=== PATIENT | male | born 1970 | race Caucasian/White ===

== ENCOUNTER 2020-08-15 06:04 | Outpatient (REF) | payer OTHER, SELFPAY ==
[2020-08-15 11:34] LABS: Estimated Average Glucose 309 mg/dL; Hemoglobin A1c % 12.4 %
[2020-08-15 11:55] LABS: Creatinine Urine 95.19 mg/dL; Microalbum/Creatinine Ratio Ur 32.5 ug/mg cr
[2020-08-15 12:11] LABS: TSH reflex Free T4 3.72 uIU/mL (0.32-4.0)
[2020-08-15 12:15] LABS: Alanine Aminotransferase 27 U/L (0-40); Albumin Level 4.2 g/dL (3.5-5.0); Alkaline Phosphatase 63 U/L (39-117); Anion Gap 17 (12-20); Aspartate Amino Transferase 17 U/L (5-37); Bilirubin Total 0.5 mg/dL (0.0-1.0); Blood Urea Nitrogen 30 mg/dL (9-16); Calcium 9.4 mg/dL (8.4-10.2); Carbon Dioxide 25 mmol/L (22-29); Chloride 101 mmol/L (96-108); Cholesterol 176 mg/dL; Estimated Glomerular Filt Rate 56; Glucose Fasting 335 mg/dL (60-99); HDL Cholesterol 40 mg/dL; Potassium 4.4 mmol/L (3.3-5.1); Sodium 139 mmol/L (135-145); Total Protein 6.9 g/dL (6.5-8.0); Triglycerides 441 mg/dL
== END 2020-08-15 06:05 | disposition home or self-care (01) ==
LOC: HO.HMGCLDS 06:04
PROVIDERS: PCP Nurse Practitioner Family; Visit Provider Nurse Practitioner Family
DX: E11.9 Type 2 diabetes mellitus without complications (principal); E03.9 Hypothyroidism, unspecified
CPT/HCPCS: 36415; 80053; 80061; 82043; 83036; 84443

== ENCOUNTER 2021-07-18 05:59 | Outpatient (REF) | payer OTHER, SELFPAY ==
[2021-07-18 11:35] LABS: Appearance Urine CLOUDY; Color Urine YELLOW; Glucose Urine UA >=1000 MG/DL (NEG); Leukocyte Esterase Urine NEG (NEG); Nitrite Urine NEG (NEG); PH 5.5 (5.0-8.0); Specific Gravity - Urine >= 1.030 (1.005-1.025); Urine Blood NEG (NEG); Urine Ketones NEG (NEG); Urine Protein NEG (NEG-TRACE)
[2021-07-18 11:37] LABS: Alanine Aminotransferase 23 U/L (0-40); Albumin Level 4.1 g/dL (3.5-5.0); Alkaline Phosphatase 71 U/L (39-117); Anion Gap 17 (12-20); Aspartate Amino Transferase 15 U/L (5-37); Bilirubin Total 0.6 mg/dL (0.0-1.0); Blood Urea Nitrogen 21 mg/dL (9-16); Calcium 9.2 mg/dL (8.4-10.2); Carbon Dioxide 23 mmol/L (22-29); Chloride 102 mmol/L (96-108); Cholesterol 207 mg/dL; Estimated Glomerular Filt Rate 55; Glucose Fasting 328 mg/dL (60-99); HDL Cholesterol 39 mg/dL; LDL Cholesterol Calculated 117 mg/dl; Potassium 3.9 mmol/L (3.3-5.1); Sodium 138 mmol/L (135-145); Total Protein 6.9 g/dL (6.5-8.0); Triglycerides 257 mg/dL
[2021-07-18 12:01] LABS: Prostate Specific Antigen Scr 0.44 ng/mL (<0.05-4.0)
[2021-07-18 12:11] LABS: Bacteria Urine 2+ /LPF; Creatinine Urine 151.59 mg/dL; Microalbum/Creatinine Ratio Ur 32.3 ug/mg cr; RBC Urine 0-2 /HPF (0); Squamous Epithelial Cell Urine TRACE /LPF
[2021-07-18 12:11] LABS: Estimated Average Glucose 341 mg/dL; Hemoglobin A1c % 13.5 %
[2021-07-18 12:12] LABS: Mucus Urine 1+ /LPF
[2021-07-18 12:45] LABS: Free T4 (Free Thyroxine) 0.84 ng/dL (0.71-1.85)
== END 2021-07-18 06:00 | disposition home or self-care (01) ==
LOC: HO.HMGCLDS 05:59
PROVIDERS: Visit Provider Nurse Practitioner Family
DX: Z12.5 Encounter for screening for malignant neoplasm of prostate (principal); E11.9 Type 2 diabetes mellitus without complications
CPT/HCPCS: 36415; 80053; 80061; 81001; 82043; 83036; 84153; 84439; 84443

== ENCOUNTER → 2022-07-16 07:19 | Outpatient (BNVA) | payer OTHER, SELFPAY | PROVIDERS: PCP Nurse Practitioner Family; Visit Provider Physician Assistant | DX: Z12.11 Encounter for screening for malignant neoplasm of colon (principal) | CPT/HCPCS: 99202 ==

== ENCOUNTER 2022-12-17 14:47 | Outpatient (AMB) | payer OTHER, SELFPAY ==
--- NOTE | 2022-12-17 15:06 | A.OFFPC_ITS ---
Vital Signs 12/17/22 15:07 Height 5 ft 6 in Weight 262 lb 2 oz BMI 42.3 BP 108/70 Blood Pressure Location Rt brachial Position Sitting Pulse 69 Pulse Source Pulse Oximeter Pulse Oximetry (%) 98 Oxygen Delivery Method Room Air Intake Visit Reasons: over due follow up DM and TSH Allergies No Known Allergies [No Known Allergies*] Allergy (Verified 12/17/22 15:11) Medication List - Last Reconciled 12/17/22 by HODAN Zepeda bisacodyl (Dulcolax (bisacodyl)) 10 mg (2 x 5 mg) PO ONCE 1 day fenofibrate micronized 134 mg PO DAILY 90 days irbesartan 75 mg PO DAILY 90 days levothyroxine 50 mcg PO DAILY metformin 1,000 mg PO BID 90 days omega-3 acid ethyl esters 2 caps PO BID pioglitazone (Actos) 30 mg PO DAILY polyethylene glycol 3350 (Miralax) 238 grams PO ONCE 1 day semaglutide (Ozempic) 0.25 mg (0.368 mL) subcut QWEEK simvastatin 40 mg PO DAILY 90 days Tobacco use date assessed: 12/17/22 Dental Screening Dental Screen Date: 12/17/22 Did you have a dental visit in the last 12 months?: No Did you have a dental problem in the last 6 months where you did not have access to dental care?: No Was dental information given to patient?: No HPI over due follow up DM and TSH HPI Details Pt is a diabetic, on an ARB and a statin. A1c in office today is 10.2. Due for microalbumin and labs, these have been ordered previously. Denies polyuria, polydipsia, and neuropathy. Pt denies any signs and symptoms of hypoglycemia and does know how to correct it. Pt does not check his blood sugar at all, refuses a sensor. Pt will start checking his blood sugar at home more, according to pt. Will start ozempic 0.25mg. Pt is going for a colonoscopy tomorrow. [facility] Medical History Diabetes Elevated cholesterol Hypothyroid Surgical History History of incision and drainage Hx of laparoscopic gastric banding Family History Father Heart attack Mother Cancer Social History Housing: House Patient Tobacco Use Status: Never used Tobacco e-Cigarette/Vaping Use: Never Used Second Hand Smoke Exposure: No service: No Current occupational status: employed Current occupation: [employer] Current occupational exposures/hazards: Yes Cognitive needs: No Hearing needs: No Vision needs: No Questionnaire Thrive Questionnaire Date Thrive assessed: 07/17/21 ADALI-7 AMB Questionnaire ADALI-7 Date ADALI - 7 assessed: 07/17/21 Source: Developed by Drs. Jonah Angeles, Lorene Chavez, Dougie Ortega and colleagues, with an educational lian from [employer]. Review of Systems Const Reports as per HPI Physical exam (Primary Care) Vital Signs: Last Vital Signs Pulse 69 12/17/22 15:07 BP 108/70 12/17/22 15:07 Pulse Ox 98 12/17/22 15:07 Oxygen Delivery Method Room Air 12/17/22 15:07 BMI result Body Mass Index 42.3 Tobacco/Smoking Status: Tobacco use Status Tobacco use date assessed 12/17/22 12/17/22 15:17 Patient Tobacco Use Status Never used Tobacco 12/17/22 15:11 e-Cigarette/Vaping Use Never Used 12/17/22 15:11 Thrive Assessment: Date of Thrive Assessment Date Thrive assessed 07/17/21 12/17/22 15:11 Const General: cooperative Nutritional Appearance: obese morbidly obese Orientation/consciousness: patient oriented x3 Resp Effort & Inspection: normal respiratory effort Auscultation: clear to auscultation bilaterally Cardio Rate: regular rate Rhythm: regular rhythm Heart sounds: S1 normal heart sound present and S2 normal heart sound present Neuro General: patient oriented x3 Extrem Other: bilat feet: + sensation with use of monofilament, onychomycosis noted bilat, right big toenail mostly absent Psych Appearance: grossly normal Mental Status: mental status grossly normal Speech and movement: Normal speech and movement present Affect: normal affect Attitude: cooperative Thought process: Normal thought process present Thought content: Normal thought content present Insight: Good insight present (Psych) Judgement: Good judgement present (Psych) Results AMB Hemoglobin A1c AMB Hemoglobin A1c 10.2 % Last Edit by Cindy Abdalla CMA on 12/17/22 15 :30 Results Reviewed Results Reviewed: Laboratory Last Values Hgb A1c (Clinic) 10.2 % (4.0-6.0) H 12/17/22 15:29 Assessment and Plan Assessment & Plan (1) Diabetes: Code(s): E11.9 - Type 2 diabetes mellitus without complications Plan The patient agreed to the use of a bilingual medical assistant for this encounter. Scribed for HODAN Fung by Montse Negrete bilingual medical assistant, on 12/17/2022 at 15:30 EST. Orders: Orders AMB Hemoglobin A1c Today E11.9 - Type 2 diabetes mellitus without complications Medications: New semaglutide (Ozempic) for 4 weeks 0.25 mg (0.368 mL) subcut QWEEK 3 mL 1RF Coding Level of Care Code Est Pt Level 3 (40590) Diagnoses Diabetes E11.9
[2022-12-17 15:07] VITALS: BP 108/70; PULSE 69; O2SAT 98; BMI 42.3
== END 2022-12-17 15:54 | disposition home or self-care (01) ==
PROVIDERS: Visit Provider Nurse Practitioner Family
DX: E11.9 Type 2 diabetes mellitus without complications (principal)
CPT/HCPCS: 83036; 99213

== ENCOUNTER 2022-12-18 09:52 | Day surgery (SDC) | payer OTHER, SELFPAY ==
[2022-12-16 13:38] VITALS: BMI 40.8
--- NOTE | 2022-12-17 10:35 | P.CONAN_ITS ---
Documented by User: Marlena Rosenberg NP 12/17/22 10:35 HPI - Anesthesia Eval Consult details Narrative: 52yo M for Colonoscopy [facility] Active Problems Active Problems: All Active Problems (Updated 12/16/22 @ 13:35 by Kimberly Encarnacion RN) Hypothyroid (Acute) Dyslipidemia (Acute) Diabetes (Acute) Screening PSA (prostate specific antigen) (Acute) Uncontrolled diabetes mellitus with hyperglycemia (Acute) Screening for colon cancer (Acute) Past Medical History Medical History Diabetes Elevated cholesterol HTN (hypertension) Hypothyroid Family History Family History Father Heart attack Mother Cancer Surgical History Surgical History History of incision and drainage Hx of laparoscopic gastric banding Social History Social History Housing: House Patient Tobacco Use Status: Never used Tobacco e-Cigarette/Vaping Use: Never Used Second Hand Smoke Exposure: No Use of substances other than those prescribed or required for medical reasons: No Are you DNR?: No Advance Directives: No Advance Directives Information Provided: Yes service: No Current occupational status: employed Current occupation: [employer] Current occupational exposures/hazards: Yes Cognitive needs: No Hearing needs: No Vision needs: No Meds Allergies Allergy/AdvReac Type Severity Reaction Status Date / Time No Known Allergies Allergy Verified 12/18/22 10:23 [No Known Allergies*] Exam Exam Date and Time: December 17, 2022 1035 Height,Weight and Vital Signs: Height 5 ft 6 in Weight 114.759 kg Assessment and Plan Assessment Anesthesia Assessment: Chart Reviewed Documented by User: Selina Gray MD 12/18/22 11:42 PMFSH Past Medical History Medical History Diabetes Elevated cholesterol HTN (hypertension) Hypothyroid Family History Family History Father Heart attack Mother Cancer Family history of problems with anesthesia: No Surgical History Surgical History History of incision and drainage Hx of laparoscopic gastric banding History of Problems with Anesthesia: No Social History Social History Housing: House Patient Tobacco Use Status: Never used Tobacco e-Cigarette/Vaping Use: Never Used Second Hand Smoke Exposure: No Use of substances other than those prescribed or required for medical reasons: No Are you DNR?: No Advance Directives: No Advance Directives Information Provided: Yes service: No Current occupational status: employed Current occupation: [employer] Current occupational exposures/hazards: Yes Cognitive needs: No Hearing needs: No Vision needs: No Meds Allergies Allergy/AdvReac Type Severity Reaction Status Date / Time No Known Allergies Allergy Verified 12/18/22 10:23 [No Known Allergies*] Exam Airway Mallampati Class: III TM Dist: >3cm Heart: rrr Lungs: cta Assessment and Plan Assessment Anesthesia Assessment: Anesthesia Plan Discussed Final Anesthetic Review Family History of Problems with Anesthesia: No History of Problems with Anesthesia: No NPO: Yes ASA Class: III Final Preanesthetic Review: No Changes in Pt Med Stat, Meds/Allgs Chart Reviewed, Consent Obtained/Reviewed and Anes Risks/Benef Reviewed Patient Risk: Intermediate Procedure Risk: Low Anesthetic Plan Anesthetic Plan: MAC: Disposition: Standard PACU
[2022-12-18 10:35] VITALS: BP 162/85; PULSE 74; RESP 16; TEMP 36.2; O2SAT 96
--- NOTE | 2022-12-18 10:40 | MHC.SHP ---
Pre-Procedural Eval Section A Date of Service: 12/18/22 Section B Chief Complaint: screening Relevant Family History (Specify if Yes): No Relevant Social History: None Present Medications: see Short Stay Collaborative assessment Medical History: Significant History (Diabetes Elevated cholesterol HTN (hypertension) Hypothyroid) History of Previous Operations: Relevant previous surgery/procedure and date(s) (History of incision and drainage Hx of laparoscopic gastric banding) Allergies: Allergies Allergy/AdvReac Type Severity Reaction Status Date / Time No Known Allergies Allergy Verified 12/18/22 10:23 [No Known Allergies*] Review of Systems Sugical H&P ROS: Negative: Constitution, Cardiovascular, Respiratory, Neurological, Psychiatric, Hem-Onc, Allergic/Immunologic, Gastrointestinal, Genitourinary, Musculoskeletal, Integumentary, Endocrine and Eyes/Ears/Nose/Throat Exam Surgical H&P Exam: Normal: HEENT, Normal: Heart, Normal: Lungs, Normal: Extremities, Normal: Abdomen, Normal: Skin and Normal: Neurological Plan Diagnosis/Plan: Unchanged I have reviewed the history and physical and performed a pertinent physical examination on my patient. No changes have occurred unless specified. Time Spent With Patient Time: Total time managing care of this patient today ____ minutes.
[2022-12-18] MEDS: Lactated Ringers 1,000 ML 100 ML IVCONT (10:50)
[2022-12-18 10:55] LABS: Glucose, Whole Blood 202 mg/dL (60-115)
--- NOTE | 2022-12-18 11:53 | W.PM.OPN ---
Operative Note Operative Note Date of Service: 12/18/22 Narrative: Operative Information Procedure Description: Colonoscopy Indication: screening Anesthesia: MAC COLONOSCOPY Instrument: Olympus variable stiffness ADULT scope 190L Colonoscopy Monitoring: Vital signs and clinical assessment, continuous EKG monitoring, Pulse oximetry, Carbon Dioxide monitoring and blood pressure monitoring were done throughout the procedure. Colon withdrawal time was 8 minutes. Procedure: The patient was placed in the left lateral decubitis position and pre-procedure medications were administered. After a digital rectal examination of the ano-rectum, the video colonoscope was inserted into the rectum and advanced through the colon to the cecum/TI. The colonoscope was slowly withdrawn in a retrograde panoramic fashion and the colon mucosa was carefully examined including a retroflexed view of the rectum. Findings and interventions are described below. Procedure Difficulty: [] Findings: Terminal Ileum-normal Cecum:normal Ascending Colon: normal Transverse Colon -normal Descending Colon:normal Sigmoid Colon: normal Rectum: Retroflexion with small internal hemorrhoids, grade I Anorectum - normal Colon preparation: [place] Bowel Preparation Scale Right colon; 2 Transverse colon: 3 Left colon; 2 (0 = Unprepared colon segment with mucosa not seen due to solid stool that cannot be cleared. 1 = Portion of mucosa of the colon segment seen, but other areas of the colon segment not well seen due to staining, residual stool and/or opaque liquid. 2 = Minor amount of residual staining, small fragments of stool and/or opaque liquid, but mucosa of colon segment seen well. 3 = Entire mucosa of colon segment seen well with no residual staining, small fragments of stool or opaque liquid) Impression and Post Procedure Diagnosis: internal hemorrhoids Plan: High fiber diet leaflet Avoid straining at stool, epsom salts and sitz bath, anusol supps or cream Repeat Colonoscopy in 10 years or earlier if clinically indicated Above findings were reviewed with the patient and relevant handouts were provided if indicated.
[2022-12-18 12:21] VITALS: BP 83/61; PULSE 82; RESP 16; TEMP 36.9; O2SAT 96
[2022-12-18 12:36] VITALS: BP 106/71; PULSE 75; RESP 18; TEMP 36.7; O2SAT 96
== END 2022-12-18 13:00 | disposition home or self-care (01) ==
PROVIDERS: PCP Nurse Practitioner Family; Visit Provider Internal Medicine Gastroenterology
PROC: 0DJD8ZZ Inspection of Lower Intestinal Tract, Via Natural or Artificial Opening Endoscopic (ICD-10-PCS; CPT 45378; principal; 2022-12-18 11:50)
DX: Z12.11 Encounter for screening for malignant neoplasm of colon (principal); K64.0 First degree hemorrhoids; E11.9 Type 2 diabetes mellitus without complications; I10 Essential (primary) hypertension; E78.5 Hyperlipidemia, unspecified; E03.9 Hypothyroidism, unspecified; Z98.84 Bariatric surgery status; Z79.84 Long term (current) use of oral hypoglycemic drugs; Z79.899 Other long term (current) drug therapy
CPT/HCPCS: 45378; 82947

== ENCOUNTER → 2022-12-18 09:52 | Outpatient (BNV) | payer OTHER, SELFPAY | PROVIDERS: PCP Nurse Practitioner Family; Visit Provider Internal Medicine Gastroenterology | DX: Z12.11 Encounter for screening for malignant neoplasm of colon (principal); K64.8 Other hemorrhoids | CPT/HCPCS: 45378 ==

== ENCOUNTER 2023-02-17 06:01 | Outpatient (REF) | payer OTHER, SELFPAY ==
[2023-02-17 11:33] LABS: MANUAL DIFF FLAG NO
[2023-02-17 11:49] LABS: Basophils Percent Auto 0.7 % (0-2); Eosinophils Absolute Auto 0.2 X10*3/uL (0.0-0.4); Eosinophils Percent Auto 3.9 % (0-4); Hematocrit 38.6 % (42.0-52.0); Hemoglobin 12.7 g/dl (14.0-18.0); Imm Gran Abs Auto 0.01 X10*3/uL (0.00-0.03); Imm Gran Pct Auto 0.2 % (0.0-0.4); Lymphocytes Absolute Auto 1.4 X10*3/uL (1.2-4.9); Lymphocytes Percent Auto 23.5 % (20-40); Mean Corpuscular HGB Conc 32.9 g/dl (31.0-36.0); Mean Corpuscular Hemoglobin 28.8 pg (27.0-33.0); Mean Corpuscular Volume 87.5 fL (80.0-98.0); Mean Platelet Volume 10.6 fL (9.4-12.4); Monocytes Absolute Auto 0.5 X10*3/uL (0.1-1.2); Monocytes Percent Auto 8.9 % (2-11); Neutrophils Absolute Auto 3.8 x10*3/uL (2.0-8.3); Neutrophils Percent Auto 62.8 % (45-73); Platelet Count 223 X10*3/uL (160-400); Red Blood Count 4.41 X10*6/uL (4.60-5.80); Red Cell Distribution Width 13.2 % (11.0-16.0); White Blood Count 6.1 X10*3/uL (4.8-10.8)
[2023-02-17 12:05] LABS: Appearance Urine Clear; Color Urine Yellow; Glucose Urine UA Negative (Negative); Leukocyte Esterase Urine Negative (Negative); Nitrite Urine Negative (Negative); PH 6.5 (5.0-9.0); Urine Blood Negative (Negative); Urine Ketones Negative (Negative); Urine Protein Negative (Neg-Trace)
[2023-02-17 12:17] LABS: Alanine Aminotransferase 18 U/L (0-40); Albumin Level 4.1 g/dL (3.5-5.0); Alkaline Phosphatase 32 U/L (39-117); Anion Gap 14 (12-20); Aspartate Amino Transferase 18 U/L (5-37); Bilirubin Total 0.6 mg/dL (0.0-1.0); Blood Urea Nitrogen 24 mg/dL (9-16); Calcium 9.5 mg/dL (8.4-10.2); Carbon Dioxide 24 mmol/L (22-29); Chloride 105 mmol/L (96-108); Cholesterol 142 mg/dL (<200); Estimated Glomerular Filt Rate 52; Glucose Fasting 110 mg/dL (60-99); HDL Cholesterol 48 mg/dL (>40); LDL Cholesterol Calculated 73 mg/dL (<100); Potassium 4.4 mmol/L (3.3-5.1); Sodium 139 mmol/L (135-145); Total Protein 7.1 g/dL (6.5-8.0); Triglycerides 106 mg/dL (<150)
[2023-02-17 12:37] LABS: TSH reflex Free T4 3.69 uIU/mL (0.32-4.0)
[2023-02-17 12:39] LABS: Prostate Specific Antigen Scr 0.56 ng/mL (<0.05-4.0)
[2023-02-17 12:49] LABS: Creatinine Urine 164.91 mg/dL; Microalbum/Creatinine Ratio Ur 3.6 ug/mg cr (<30)
== END 2023-02-17 06:02 | disposition home or self-care (01) ==
LOC: HO.HMGCLDS 06:01
PROVIDERS: PCP Nurse Practitioner Family; Visit Provider Nurse Practitioner Family
DX: E11.65 Type 2 diabetes mellitus with hyperglycemia (principal); Z12.5 Encounter for screening for malignant neoplasm of prostate
CPT/HCPCS: 36415; 80053; 80061; 81003; 82043; 82570; 84153; 84443; 85025

== ENCOUNTER 2023-02-24 12:39 | Outpatient (REF) | payer OTHER, SELFPAY ==
[2023-02-24 16:38] LABS: Blood Urea Nitrogen 21 mg/dL (9-16); Estimated Glomerular Filt Rate 58
== END 2023-02-24 12:40 | disposition home or self-care (01) ==
LOC: HO.HMGCLDS 12:39
PROVIDERS: PCP Nurse Practitioner Family; Visit Provider Nurse Practitioner Family
DX: R79.89 Other specified abnormal findings of blood chemistry (principal)
CPT/HCPCS: 36415; 82565; 84520

== ENCOUNTER 2023-05-18 14:03 | Outpatient (AMB) | payer OTHER, SELFPAY ==
--- NOTE | 2023-05-18 14:17 | MHC.PC.OV ---
Vital Signs 05/18/23 14:19 Height 5 ft 6 in Weight 252 lb BMI 40.7 BP 108/68 Blood Pressure Location Lt brachial Position Sitting Pulse 78 Pulse Source Pulse Oximeter Pulse Oximetry (%) 98 Oxygen Delivery Method Room Air Intake Visit Reasons: Diabetes follow up Intake Note: Patient here for diabetes F/U. Pt has not been checking sugars at home. Allergies No Known Allergies [No Known Allergies*] Allergy (Verified 05/18/23 14:20) Tobacco use date assessed: 05/18/23 Dental Screening Dental Screen Date: 05/18/23 Did you have a dental visit in the last 12 months?: No Did you have a dental problem in the last 6 months where you did not have access to dental care?: No Was dental information given to patient?: Patient has dentist HPI Diabetes follow up HPI Details Pt is a diabetic, on an ARB and a statin. A1C in office today is 7.1. Microalbumin is up to date. Denies polyuria, polydipsia, and neuropathy. Pt denies any signs and symptoms of hypoglycemia and does know how to correct it. Pt does not check his blood sugar. Refuses sensor. Will increase trulicity from 0.75mg to 1.5mg. Pt is working on his diet. Pt reports that he was told he has sleep apnea (after having a colon screen), he refuses to see sleep medicine. Refuses all vaccinations. [facility] Medical History HTN (hypertension) Hypothyroid Diabetes Elevated cholesterol Surgical History History of incision and drainage Hx of laparoscopic gastric banding Family History Father Heart attack Mother Cancer Social History Housing: House Patient Tobacco Use Status: Never used Tobacco e-Cigarette/Vaping Use: Never Used Second Hand Smoke Exposure: No service: No Current occupational status: employed Current occupation: [employer] Current occupational exposures/hazards: Yes Cognitive needs: No Hearing needs: No Vision needs: No Questionnaire PHQ-9 Over the last 2 weeks, how often have you been bothered by any of the following problems? 69302 - PHQ-9 Billing: Patient declined-do not bill Source: Developed by Drs. Jonah Angeles, Dougie Reyna and colleagues, with an educational lian from [employer]. Thrive Questionnaire Date Thrive assessed: 05/18/23 What is your living situation today?: I choose not to answer this question Within the past 12 months, did the food you bought not last and you didn't have the money to get more?: I choose not to answer this question Within the past 12 months, did you worry whether your food would run out before you got money to buy more?: I choose not to answer this question Do you have trouble paying for medicines?: I choose not to answer this question Do you have trouble getting transportation to medical appointments?: I choose not to answer this question Do you have trouble paying your heating and electricity bill?: I choose not to answer this question Do you have trouble taking care of your child, family member or friend?: I choose not to answer this question Do you have trouble with day-to-day activities such as bathing, preparing meals, shopping, managing finances, etc.?: I choose not to answer this question Are you currently unemployed and looking for a job?: I choose not to answer this question Are you interested in more education?: I choose not to answer this question AUDIT C Alcohol Use Questionnaire (AUDIT-C) 1. How often do you have a drink containing alcohol?: Monthly or less 2. How many drinks containing alcohol do you have on a typical day when you are drinking?: 1 or 2 3. How often do you have six or more drinks on one occasion?: Never Total Score: 1 Score Reviewed/Action Taken: No ADALI-7 AMB Questionnaire ADALI-7 Date ADALI - 7 assessed: 05/18/23 Source: Developed by Drs. Jonah Angeles, Dougie Reyna and colleagues, with an educational lian from [employer]. ADALI-7 Assessment Billing ADALI-7 Assessment Tool: pt declined-do not bill Review of Systems Const Reports as per HPI Physical exam (Primary Care) Vital Signs: Last Vital Signs Pulse 78 05/18/23 14:19 BP 108/68 05/18/23 14:19 Pulse Ox 98 05/18/23 14:19 Oxygen Delivery Method Room Air 05/18/23 14:19 BMI result Body Mass Index 40.7 Tobacco/Smoking Status: Tobacco use Status Tobacco use date assessed 05/18/23 05/18/23 14:24 Patient Tobacco Use Status Never used Tobacco 05/18/23 14:19 e-Cigarette/Vaping Use Never Used 05/18/23 14:19 Thrive Assessment: Date of Thrive Assessment Date Thrive assessed 05/18/23 05/18/23 14:31 Const General: cooperative Nutritional Appearance: obese morbidly obese Orientation/consciousness: patient oriented x3 Resp Effort & Inspection: normal respiratory effort Auscultation: clear to auscultation bilaterally Cardio Rate: regular rate Rhythm: regular rhythm Heart sounds: S1 normal heart sound present, S2 normal heart sound present and no murmurs Neuro General: patient oriented x3 Extrem Other: bilat feet: + sensation with use of monofilament Psych Appearance: grossly normal Mental Status: mental status grossly normal Speech and movement: Normal speech and movement present Affect: normal affect Attitude: cooperative Thought process: Normal thought process present Thought content: Normal thought content present Insight: Good insight present (Psych) Judgement: Good judgement present (Psych) Results AMB Hemoglobin A1c AMB Hemoglobin A1c 7.1 % Last Edit by DAISHA Williamson on 05/18/23 14:50 Results Reviewed Results Reviewed: Laboratory Last Values Hgb A1c (Clinic) 7.1 % (4.0-6.0) H 05/18/23 14:30 Assessment and Plan Assessment & Plan (1) Diabetes: Code(s): E11.9 - Type 2 diabetes mellitus without complications Plan increased trulicity from .75mg to 1.5mg weekly. Orders: Orders Comprehensive [place]. Panel Fast Today E11.9 - Type 2 diabetes mellitus without complications TSH reflex Free T4 Today E11.9 - Type 2 diabetes mellitus without complications UA CC w/rflx Micro + Cult Today E11.9 - Type 2 diabetes mellitus without complications AMB Hemoglobin A1c Today E11.9 - Type 2 diabetes mellitus without complications Complete Blood Count Auto Diff Today E11.9 - Type 2 diabetes mellitus without complications Medications: Changed From dulaglutide (Trulicity) 0.75 mg (0.5 mL) subcut QWEEK 2 mL 1RF To dulaglutide 1.5 mg (0.5 mL) subcut QWEEK 2 mL 1RF Coding Level of Care Code Est Pt Level 3 (77710) Diagnoses Diabetes E11.9
[2023-05-18 14:19] VITALS: BP 108/68; PULSE 78; O2SAT 98; BMI 40.7
== END 2023-05-18 15:16 | disposition home or self-care (01) ==
PROVIDERS: PCP Nurse Practitioner Family; Visit Provider Nurse Practitioner Family
DX: E11.9 Type 2 diabetes mellitus without complications (principal)
CPT/HCPCS: 83036; 99213

== ENCOUNTER 2023-09-03 09:22 | Outpatient (REF) | payer OTHER, SELFPAY ==
[2023-09-03 10:17] LABS: MANUAL DIFF FLAG NO
[2023-09-03 10:33] LABS: Basophils Absolute Auto 0.1 X10*3/uL (0.0-0.2); Basophils Percent Auto 0.9 % (0-2); Eosinophils Absolute Auto 0.2 X10*3/uL (0.0-0.4); Eosinophils Percent Auto 2.4 % (0-4); Hematocrit 39.6 % (42.0-52.0); Hemoglobin 12.9 g/dl (14.0-18.0); Imm Gran Abs Auto 0.03 X10*3/uL (0.00-0.03); Imm Gran Pct Auto 0.4 % (0.0-0.4); Lymphocytes Absolute Auto 1.5 X10*3/uL (1.2-4.9); Lymphocytes Percent Auto 20.3 % (20-40); Mean Corpuscular HGB Conc 32.6 g/dl (31.0-36.0); Mean Platelet Volume 10.4 fL (9.4-12.4); Monocytes Absolute Auto 0.6 X10*3/uL (0.1-1.2); Neutrophils Absolute Auto 5.1 x10*3/uL (2.0-8.3); Platelet Count 226 X10*3/uL (160-400); Red Blood Count 4.45 X10*6/uL (4.60-5.80); Red Cell Distribution Width 13.2 % (11.0-16.0); White Blood Count 7.5 X10*3/uL (4.8-10.8)
[2023-09-03 11:24] LABS: Alanine Aminotransferase 20 U/L (0-40); Albumin Level 4.4 g/dL (3.5-5.0); Alkaline Phosphatase 30 U/L (39-117); Anion Gap 15 (12-20); Aspartate Amino Transferase 21 U/L (5-37); Bilirubin Total 0.5 mg/dL (0.0-1.0); Blood Urea Nitrogen 26 mg/dL (9-16); Calcium 9.9 mg/dL (8.4-10.2); Carbon Dioxide 23 mmol/L (22-29); Chloride 102 mmol/L (96-108); Estimated Glomerular Filt Rate 54; Glucose Fasting 107 mg/dL (60-99); Potassium 4.1 mmol/L (3.3-5.1); Sodium 136 mmol/L (135-145); Total Protein 7.4 g/dL (6.5-8.0)
[2023-09-03 11:32] LABS: Appearance Urine Clear; Color Urine Yellow; Glucose Urine UA Negative (Negative); Leukocyte Esterase Urine Negative (Negative); Nitrite Urine Negative (Negative); PH 5.5 (5.0-9.0); Urine Blood Negative (Negative); Urine Ketones Negative (Negative); Urine Protein Negative (Neg-Trace)
[2023-09-03 11:41] LABS: TSH reflex Free T4 2.72 uIU/mL (0.32-4.0)
== END 2023-09-03 09:23 | disposition home or self-care (01) ==
LOC: HO.HMGCLDS 09:22
PROVIDERS: PCP Nurse Practitioner Family; Visit Provider Nurse Practitioner Family
DX: E11.9 Type 2 diabetes mellitus without complications (principal)
CPT/HCPCS: 36415; 80053; 81003; 84443; 85025

== ENCOUNTER 2023-09-03 09:36 | Outpatient (AMB) | payer OTHER, SELFPAY ==
--- NOTE | 2023-09-03 09:38 | A.OFFPC_ITS ---
Vital Signs 09/03/23 09:48 Height 5 ft 6 in Weight 255 lb BMI 41.2 BP 120/80 Blood Pressure Location Lt brachial Position Sitting Pulse 78 Pulse Source Pulse Oximeter Pulse Oximetry (%) 98 Oxygen Delivery Method Room Air Intake Visit Reasons: Diabetes follow up Intake Note: Patient here fro diabetes follow up. Allergies No Known Allergies [No Known Allergies*] Allergy (Verified 09/03/23 09:48) Medication List - Last Reconciled 09/03/23 by HODAN Zepeda dulaglutide 3 mg (0.5 mL) subcut QWEEK fenofibrate micronized 134 mg PO DAILY 90 days irbesartan 75 mg PO DAILY 90 days levothyroxine 50 mcg PO DAILY metformin 1,000 mg PO BID 90 days omega-3 acid ethyl esters 2 caps PO BID pioglitazone (Actos) 30 mg PO DAILY simvastatin 40 mg PO DAILY 90 days Tobacco use date assessed: 05/18/23 Dental Screening Dental Screen Date: 05/18/23 HPI Diabetes follow up HPI Details Pt is a diabetic, on an ARB and a statin. A1C in office today is 6.9, though slight anemia noted, fit card given to pt, pt does not want to get any further blood drawn, will speak with him next visit. will increase his trulicity from 3mg to 4.5mg. Microalbumin is up to date. Denies polyuria, polydipsia, and neuropathy. Pt denies any signs and symptoms of hypoglycemia and does know how to correct it. Will increase trulicity from 3mg to 4.5mg. Pt c/o intermittent chest pain. He had a difficult time describing the pain but reports that it is sharp. EKG in office shows NSR. Will also order stress test and echo. [facility] Medical History HTN (hypertension) Hypothyroid Diabetes Elevated cholesterol Surgical History History of incision and drainage Hx of laparoscopic gastric banding Family History Father Heart attack Mother Cancer Social History Housing: House Patient Tobacco Use Status: Never used Tobacco e-Cigarette/Vaping Use: Never Used Second Hand Smoke Exposure: No service: No Current occupational status: employed Current occupation: [employer] Current occupational exposures/hazards: Yes Cognitive needs: No Hearing needs: No Vision needs: No Questionnaire Thrive Questionnaire Date Thrive assessed: 05/18/23 ADALI-7 AMB Questionnaire ADALI-7 Date ADALI - 7 assessed: 05/18/23 Source: Developed by Drs. Jonah Angeles, Lorene Chavez, Dougie Ortega and colleagues, with an educational lian from [employer]. Review of Systems Const Reports as per HPI Physical exam (Primary Care) Vital Signs: Last Vital Signs Pulse 78 09/03/23 09:48 BP 120/80 09/03/23 09:48 Pulse Ox 98 09/03/23 09:48 Oxygen Delivery Method Room Air 09/03/23 09:48 BMI result Body Mass Index 41.2 Tobacco/Smoking Status: Tobacco use Status Tobacco use date assessed 05/18/23 09/03/23 09:38 Patient Tobacco Use Status Never used Tobacco 09/03/23 09:38 e-Cigarette/Vaping Use Never Used 09/03/23 09:38 Thrive Assessment: Date of Thrive Assessment Date Thrive assessed 05/18/23 09/03/23 09:38 Const General: cooperative Nutritional Appearance: obese morbidly obese Orientation/consciousness: patient oriented x3 Resp Effort & Inspection: normal respiratory effort Auscultation: clear to auscultation bilaterally Cardio Rate: regular rate Rhythm: regular rhythm Heart sounds: S1 normal heart sound present and S2 normal heart sound present GI Other: diastasis rectus noted Neuro General: patient oriented x3 Extrem Other: bilat feet: + sensation with use of monofilament, feet intact, faint onychomycosis noted Psych Appearance: grossly normal Mental Status: mental status grossly normal Speech and movement: Normal speech and movement present Affect: normal affect Attitude: cooperative Thought process: Normal thought process present Thought content: Normal thought content present Insight: Good insight present (Psych) Judgement: Good judgement present (Psych) Results AMB Hemoglobin A1c AMB Hemoglobin A1c 6.9 % Last Edit by DAIHSA Williamson on 09/03/23 10 :15 Immunizations pneumoc 20-charley conj-dip cr(PF) 0.5 mL IM syringe Performing Provider: HODAN Zepeda Performing Location: [facility] Administered by: DAISHA Williamson on 09/03/23 10:42 Dose Route Admin Location Dispensed Lot Number Expiration Date NDC Title Examiner 0.5 mL IM Left Deltoid 0.5 mL [id number] 07/02/24 [id number] WYETH/PFIZER VIS Given Date VIS Provided VIS Publication Date 09/03/23 Single Vaccine 21 Eligibility Eligibility Date Funding Source Not VFC Eligible 09/03/23 Private Results Reviewed Results Reviewed: Laboratory Last Values Hgb A1c (Clinic) 6.9 % (4.0-6.0) H 09/03/23 10:14 Assessment and Plan Assessment & Plan (1) Chest pain: Code(s): R07.9 - Chest pain, unspecified Plan: EKG done in office, stress test ordered, echo ordered (2) Anemia: Code(s): D64.9 - Anemia, unspecified Plan: FIT test sent with pt, pt refused any further current blood work. Plan The patient agreed to the use of a diagnostic medical sonographer for this encounter. Scribed for HOADN Fung by Montse Negrete diagnostic medical sonographer, on 09/03/2023 at 10:05 EST. Orders: Orders 2 CA echo transthoracic complete Today R07.9 - Chest pain, unspecified CA stress test Today R07.9 - Chest pain, unspecified AMB Hemoglobin A1c Today E11.9 - Type 2 diabetes mellitus without complications AMB EKG-In Office Today R07.9 - Chest pain, unspecified CA lexiscan stress w tomy Today R07.9 - Chest pain, unspecified Pneumococcal 20 Immunization Today Z23 - Encounter for immunization FITS Today D64.9 - Anemia, unspecified Medications: Changed From dulaglutide 3 mg (0.5 mL) subcut QWEEK 2 mL 1RF To dulaglutide 4.5 mg (0.75 mL) subcut QWEEK 2 mL 1RF Coding Level of Care Code Est Pt Level 3 (98428) Diagnoses Chest pain R07.9 Anemia D64.9
[2023-09-03 09:48] VITALS: BP 120/80; PULSE 78; O2SAT 98; BMI 41.2
== END 2023-09-03 10:48 | disposition home or self-care (01) ==
PROVIDERS: PCP Nurse Practitioner Family; Visit Provider Nurse Practitioner Family
DX: E11.9 Type 2 diabetes mellitus without complications (principal); R07.9 Chest pain, unspecified; D64.9 Anemia, unspecified; Z23 Encounter for immunization
CPT/HCPCS: 83036; 90471; 90677; 93000; 99213

== ENCOUNTER → 2023-09-15 08:44 | Outpatient (REF) | payer OTHER, SELFPAY ==
--- NOTE | 2023-09-15 08:46 | CA_ITS ---
Transthoracic Echocardiogram Patient (Last, First, Middle): Julien Wilkins J Gender: Male Date of : 1970 Age: 53 Procedure Date: 09/15/2023 Procedure Type: Transthoracic Echocardiogram Location: OP Height: 167.64 cm Weight: 113.4 kg BSA: 2.20 m2 Heart Rate: bpm BP: 130 / 82 mmHg Charge Entry: Referring MD: Vito Pruett [facility] Seal Mixing Operator: Eugene Interiano MD Symptoms: R07.9 - Chest pain, unspecified Study Quality: Adequate w contrast ECG Rhythm: Sinus Conclusions: - 1. Normal LV ejection fraction 55-60% 2. Mild fibrocalcific changes noted aortic valve with normal cardiac valvular Doppler 3. No gross pericardial effusion Findings Procedure Information Contrast agent, definity, is being given per protocol without apparent complications. Left Ventricle Normal left ventricular size, thickness, and systolic function. The visually estimated ejection fraction is between 55-60%. Spectral Doppler is indicative of a normal filling pattern. Right Ventricle Normal right ventricular cavity size. Atria The left atrium is likely dilated. Interatrial shunt cannot be excluded. The right atrium is normal in size. Aortic Valve There are fibrocalcifications on the aortic valve leaflets. There is mild thickening of the aortic valve. There is no aortic valve stenosis. There is no aortic valve regurgitation. Mitral Valve Likely normal mitral valve structure and function. There is trace mitral valve regurgitation. There is no mitral valve stenosis. Pulmonic Valve The pulmonic valve was not well visualized. Tricuspid Valve Likely normal tricuspid valve structure and function. Tricuspid regurgitation envelope is inadequate for calculation of right ventricular systolic pressure. Normal right atrial pressure. Great Vessels The pulmonary artery was not well visualized. There is no dilatation of the ascending aorta measuring 3.30 cm. Venous The inferior vena cava is normal in size and collapses greater than 50% with inspiration. Pericardium/Pleural There is no evidence of pericardial effusion. Prior Study Comparison No prior study available for comparison. Measurements 2D Linear Measurements IVSd: 1.08 0.6-0.9/0.6-1.0 cm LVIDd: 4.03 3.9-5.3/4.2-5.9 cm LVIDd Index: 1.83 2.4-3.2/2.2-3.1 cm/m2 LVIDs: 2.65 2.0-3.6 cm LVPWd: 1.05 0.7-1.1 cm Ao Root: 3.10 2.1-3.5 cm LA Diam: 3.80 2.7-3.8/3.0-4.0 cm LAIDs Index: 1.73 1.5-2.3 cm/m2 LV Mass: 175.03 67-162/88-224 g LV Mass Index: 79.56 43-95/49-115 g/m2 LVOT Diam: 2.50 3.0+(-)1.3 cm Mitral Valve MV Pk E: 0.57 MV PK A: 0.60 MV Decel Time: 170.00 E/A: 1.00 E'Lateral: 7.94 E'Medial: 6.20 E/E' Med: 9.20 E/E' Lat: 7.20 PHT: 50.00 MVA PHT: 4.40 Decel [place]: 3.34 Aortic Valve AoV Pk Denys: 1.20 AoV Mn Denys: 0.82 AoV VTI: 0.27 AoV Pk Grad: 6.00 Aov Mn Grad: 3.00 VINCE Cont.VTI: 3.55 LVOT LVOT Pk Denys: 0.91 LVOT Mn Denys: 0.59 LVOT VTI: 0.20 LVOT Pk Grad: 3.00 LVOT Mn Grad: 2.00 LVOT Diam: 2.50 LVOT Area: 4.91 Diastolic Function MV Pk E: 0.57 MV Pk A: 0.60 E/A: 1.00 E'Medial: 6.20 E/E' Med: 9.20 E' Laterial: 7.94 E/E' Lat: 7.20 Right Ventricle TAPSE (mm): 23.60 TVS' Denys: 11.70 Tricuspid Valve TR Pk Denys: 1.59 TR Pk Grad: 10.00 Great Vessels Aorta Ao Root-2D: 3.10 2.0-3.7 cm Ao Asc: 3.30 2.1-3.4 cm Pulmonary Valve PV Pk Denys: 0.98 Peak PV Grad: 4.00 Updated in Other Vendor System with Status of Final Eugene Interiano MD electronically signed on 09/15/2023 12:36:25 PM with status of Final
== END ==
LOC: HO.CARD 08:44
PROVIDERS: PCP Nurse Practitioner Family; Visit Provider Nurse Practitioner Family
DX: R07.9 Chest pain, unspecified (principal)
CPT/HCPCS: 93306; Q9957

== ENCOUNTER → 2023-09-15 08:46 | Outpatient (BNV) | payer OTHER, SELFPAY | PROVIDERS: PCP Nurse Practitioner Family; Visit Provider Internal Medicine Cardiovascular Disease | DX: I35.8 Other nonrheumatic aortic valve disorders (principal) | CPT/HCPCS: 93306 ==

== ENCOUNTER → 2023-10-15 07:38 | Outpatient (REF) | payer OTHER, SELFPAY ==
--- NOTE | ~2023-10-15 | NM_ITS ---
EXERCISE MYOCARDIAL PERFUSION STUDY INDICATION: Chest pain, assess for coronary disease and ischemia TECHNIQUE: The patient was brought in for an exercise perfusion study on 10/15/2023. Patient performed exercise as per Giorgio protocol and was injected 40 mCi of sestamibi once target heart rate was achieved. Images were obtained using the SPECT gamma camera interlaced with the gating device. Images were obtained in supine position. Resting perfusion study was performed on 10/16/2023. Patient was administered 40 mCi of sestamibi intravenously at rest. Images were then obtained in supine position. Images were processed with the software and compared side to side in short axis, horizontal long axis and vertical long axis views. Total DLP 203mGy-cm. FINDINGS: Raw images were reviewed. Raw acquisition reviewed. The stress perfusion study showed no significant perfusion abnormality. Both uncorrected as well as CT attenuation corrected images were reviewed. The gated study shows normal LV systolic function with calculated LVEF of 60%. LV cavity is normal in size. The gated study shows normal wall thickening and contraction of segments. Resting study shows no significant perfusion abnormality. Gating at rest reveals normal wall motion with LVEF 61%. The findings are consistent with no clear evidence of any ischemia or infarction. NM/NM cardiolite stress test IMPRESSION: 1. Myocardial perfusion imaging study shows probably normal myocardial perfusion. 2. Gated LVEF is 60% during stress; 61% during rest. 3. Transient ischemic dilatation not present. EKG component of the test reported separately.
--- NOTE | 2023-10-15 07:40 | CA_ITS ---
Acquisition Time: 2023-10-15 07:54:11 Total Exercise Time: 00:07:26 Test Indications: Chest Pain Medications: LEVOTHYROXINE IRBESARTAN METFORMIN ACTOS SIMVASTATIN Protocol: RICHARD Max HR: 153 BPM 90% of Pred: 169 BPM Max BP: 170/068 mmHG Max Work Load: 9.1 METS Exercise stress test exercise 7 min 26 sec of Richard protocol achieving 90% MPHR, with mild SOB, no chest discomfort, with isolated PVCs, ventricular cuplet, with normotensive response to exercise, without EKG changes, Nuclear images pending. Test reviewed with Dr. Saravia. Referred By: Vito Pruett Overread By: Viridiana Villalba
== END ==
LOC: HO.CARD 07:38
PROVIDERS: PCP Nurse Practitioner Family; Visit Provider Nurse Practitioner Family
DX: R07.9 Chest pain, unspecified (principal)
CPT/HCPCS: 78452; 93017; A9500

== ENCOUNTER → 2023-10-15 07:40 | Outpatient (BNV) | payer OTHER, SELFPAY | PROVIDERS: PCP Nurse Practitioner Family; Visit Provider Nurse Practitioner | DX: R07.9 Chest pain, unspecified (principal) | CPT/HCPCS: 78452; 93016; 93018 ==

== ENCOUNTER 2024-01-06 09:57 | Outpatient (AMB) | payer OTHER, SELFPAY ==
[2024-01-06 10:04] VITALS: BP 122/80; PULSE 82; O2SAT 98; BMI 41.5
--- NOTE | 2024-01-06 10:04 | A.OFFPC_ITS ---
Vital Signs 01/06/24 10:04 Height 5 ft 6 in Weight 257 lb BMI 41.5 BP 122/80 Blood Pressure Location Rt brachial Position Sitting Pulse 82 Pulse Source Pulse Oximeter Pulse Oximetry (%) 98 Oxygen Delivery Method Room Air Intake Visit Reasons: 4M F/U DM- NEEDS PHQ9 Intake Note: pt is here for 4 month follow up, regarding DM. A1c done in office today Motorcycle Delivery Driver Required: No Accompanied by: Self / Same As Patient Allergies No Known Allergies [No Known Allergies*] Allergy (Verified 01/06/24 10:33) Medication List - Last Reconciled 01/06/24 by HODAN Zepeda dulaglutide 3 mg (0.5 mL) subcut QWEEK fenofibrate micronized 134 mg PO DAILY 90 days irbesartan 75 mg PO DAILY 90 days levothyroxine 50 mcg PO DAILY metformin 1,000 mg PO BID 90 days omega-3 acid ethyl esters 2 caps PO BID pioglitazone (Actos) 30 mg PO DAILY simvastatin 40 mg PO DAILY 90 days Tobacco use date assessed: 05/18/23 Dental Screening Dental Screen Date: 05/18/23 HPI 4M F/U DM- NEEDS PHQ9 HPI Details Pt is a diabetic, on an ARB and a statin. A1C in office today is 6.8. Due for microalbumin next month, will order. Denies polyuria, polydipsia, and neuropathy. Pt denies any signs and symptoms of hypoglycemia and does know how to correct it. Will increase trulicity from 1.5mg to 3mg. Pt has ? hx of sleep apnea. Will refer for sleep study. [facility] Medical History HTN (hypertension) Hypothyroid Diabetes Elevated cholesterol Surgical History History of incision and drainage Hx of laparoscopic gastric banding Family History Father Heart attack Mother Cancer Social History Housing: House Patient Tobacco Use Status: Never used Tobacco e-Cigarette/Vaping Use: Never Used Second Hand Smoke Exposure: No service: No Current occupational status: employed Current occupation: [employer] Current occupational exposures/hazards: Yes Cognitive needs: No Hearing needs: No Vision needs: No Questionnaire PHQ-9 Over the last 2 weeks, how often have you been bothered by any of the following problems? 1. Little interest or pleasure in doing things: not at all 2. Feeling down, depressed, or hopeless: not at all 3. Trouble falling or staying asleep, or sleeping too much: not at all 4. Feeling tired or having little energy: not at all 5. Poor appetite or overeating: not at all 6. Feeling bad about yourself - or that you are a failure or have let yourself or your family down: not at all 7. Trouble concentrating on things, such as reading the newspaper or watching television: not at all 8. Moving or speaking so slowly that other people could have noticed. Or the opposite - being so fidgety or restless that you have been moving around a lot more than usual: not at all 9. Thoughts that you would be better off or of hurting yourself in some way: not at all Total score: 0 Depression Screening Interpretation: Negative Depression Screening Done: Yes 08232 - PHQ-9 Billing: Yes Source: Developed by Drs. Jonah Angeles, Lorene Chavez, Dougie Ortega and colleagues, with an educational lian from [employer]. Thrive Questionnaire Date Thrive assessed: 05/18/23 AUDIT C Alcohol Use Questionnaire (AUDIT-C) 1. How often do you have a drink containing alcohol?: Monthly or less 2. How many drinks containing alcohol do you have on a typical day when you are drinking?: 1 or 2 3. How often do you have six or more drinks on one occasion?: Never Total Score: 1 Score Reviewed/Action Taken: Yes ADALI-7 AMB Questionnaire ADALI-7 Date ADALI - 7 assessed: 05/18/23 Feeling nervous, anxious, or on edge: 0 = Not at all Not being able to stop or control worryin = Not at all Worrying too much about different things: 0 = Not at all Trouble relaxin = Not at all Being so restless that it is hard to sit still: 0 = Not at all Becoming easily annoyed or irritable: 0 = Not at all Feeling afraid as if something awful might happen: 0 = Not at all Total ADALI-7 score (0-4 normal; 5-9 mild; 10-14 moderate; 15-21 severe): 0 Source: Developed by Drs. Jonah Angeles, Lorene Chavez, Dougie Ortega and colleagues, with an educational lian from [employer]. ADALI-7 Assessment Billing ADALI-7 Assessment Tool: ADALI-7 Assessment 15973 Review of Systems Const Reports as per HPI Physical exam (Primary Care) Vital Signs: Last Vital Signs Pulse 82 01/06/24 10:04 BP 122/80 01/06/24 10:04 Pulse Ox 98 01/06/24 10:04 Oxygen Delivery Method Room Air 01/06/24 10:04 BMI result Body Mass Index 41.5 Tobacco/Smoking Status: Tobacco use Status Tobacco use date assessed 05/18/23 01/06/24 10:05 Patient Tobacco Use Status Never used Tobacco 01/06/24 10:05 e-Cigarette/Vaping Use Never Used 01/06/24 10:05 PHQ-9: PHQ-9 Score PHQ-9: Total score 0 01/06/24 10:23 Depression Screening Interpretation: Negative Thrive Assessment: Date of Thrive Assessment Date Thrive assessed 05/18/23 01/06/24 10:05 Const General: cooperative Nutritional Appearance: obese morbidly obese Orientation/consciousness: patient oriented x3 Resp Effort & Inspection: normal respiratory effort Auscultation: clear to auscultation bilaterally Cardio Rate: regular rate Rhythm: regular rhythm Heart sounds: S1 normal heart sound present and S2 normal heart sound present Neuro General: patient oriented x3 Extrem Other: bilat feet: + sensation with use of monofilament, feet intact Psych Appearance: grossly normal Mental Status: mental status grossly normal Speech and movement: Normal speech and movement present Affect: normal affect Attitude: cooperative Thought process: Normal thought process present Thought content: Normal thought content present Insight: Good insight present (Psych) Judgement: Good judgement present (Psych) Assessment and Plan Assessment & Plan (1) Uncontrolled diabetes mellitus with hyperglycemia: Code(s): E11.65 - Type 2 diabetes mellitus with hyperglycemia Plan: Increasing trulicity from 1.5mg to 3mg, labs ordered (2) Screening PSA (prostate specific antigen): Code(s): Z12.5 - Encounter for screening for malignant neoplasm of prostate Plan: Labs ordered (3) Sleep apnea: Code(s): G47.30 - Sleep apnea, unspecified Plan: Referred for sleep study Plan The patient agreed to the use of a medical reviewer for this encounter. Scribed for HODAN Fung by Montse Negrete medical reviewer, on 01/06/2024 at 10:20 EST. Orders: Orders Comprehensive [place]. Panel Fast Today E11.65 - Type 2 diabetes mellitus with hyperglycemia Complete Blood Count Auto Diff Today E11.65 - Type 2 diabetes mellitus with hyperglycemia TSH reflex Free T4 Today E11.65 - Type 2 diabetes mellitus with hyperglycemia UA CC w/rflx Micro + Cult Today E11.65 - Type 2 diabetes mellitus with hyperglycemia Lipid Panel Today E11.65 - Type 2 diabetes mellitus with hyperglycemia Microalbumin, Random (w Creat) Today E11.65 - Type 2 diabetes mellitus with hyperglycemia Prostate Specific Antigen Scr Today Z12.5 - Encounter for screening for malignant neoplasm of prostate Referrals Sleep Medicine Referral G47.30 - Sleep apnea, unspecified Medications: Changed From dulaglutide 1.5 mg (0.5 mL) subcut QWEEK 6 mL 1RF To dulaglutide 3 mg (0.5 mL) subcut QWEEK 2 mL 1RF Coding Level of Care Code Est Pt Level 3 (07220) Diagnoses Uncontrolled diabetes mellitus with hyperglycemia E11.65 Screening PSA (prostate specific antigen) Z12.5 Sleep apnea G47.30 Additional Codes ADALI-7 Assessment Billing - ADALI-7 Assessment Tool: ADALI-7 Assessment 30230 ([id number])
== END 2024-01-06 10:35 | disposition home or self-care (01) ==
PROVIDERS: PCP Nurse Practitioner Family; Visit Provider Nurse Practitioner Family
DX: E11.65 Type 2 diabetes mellitus with hyperglycemia (principal); Z12.5 Encounter for screening for malignant neoplasm of prostate; G47.30 Sleep apnea, unspecified
CPT/HCPCS: 99213

== ENCOUNTER 2024-05-25 06:05 | Outpatient (REF) | payer OTHER, SELFPAY ==
[2024-05-25 10:41] LABS: Appearance Urine Clear; Color Urine Yellow; Glucose Urine UA Negative (Negative); Leukocyte Esterase Urine Negative (Negative); Nitrite Urine Negative (Negative); PH 5.5 (5.0-9.0); Specific Gravity - Urine 1.015 (1.005-1.025); Urine Blood Negative (Negative); Urine Ketones Negative (Negative); Urine Protein Negative (Neg-Trace)
[2024-05-25 10:48] LABS: MANUAL DIFF FLAG NO
[2024-05-25 10:51] LABS: Basophils Percent Auto 0.7 % (0-2); Eosinophils Absolute Auto 0.2 X10*3/uL (0.0-0.4); Eosinophils Percent Auto 4.3 % (0-4); Hematocrit 36.3 % (42.0-52.0); Hemoglobin 11.9 g/dl (14.0-18.0); Imm Gran Abs Auto 0.01 X10*3/uL (0.00-0.03); Imm Gran Pct Auto 0.2 % (0.0-0.4); Lymphocytes Absolute Auto 1.6 X10*3/uL (1.2-4.9); Lymphocytes Percent Auto 29.6 % (20-40); Mean Corpuscular HGB Conc 32.8 g/dl (31.0-36.0); Mean Corpuscular Volume 88.5 fL (80.0-98.0); Mean Platelet Volume 10.8 fL (9.4-12.4); Monocytes Absolute Auto 0.5 X10*3/uL (0.1-1.2); Monocytes Percent Auto 9.4 % (2-11); Neutrophils Percent Auto 55.8 % (45-73); Platelet Count 203 X10*3/uL (160-400); Red Cell Distribution Width 13.3 % (11.0-16.0); White Blood Count 5.3 X10*3/uL (4.8-10.8)
[2024-05-25 11:18] LABS: Alanine Aminotransferase 18 U/L (0-40); Albumin Level 4.1 g/dL (3.5-5.0); Alkaline Phosphatase 31 U/L (39-117); Anion Gap 10 (12-20); Aspartate Amino Transferase 25 U/L (5-37); Bilirubin Total 0.5 mg/dL (0.0-1.0); Blood Urea Nitrogen 26 mg/dL (9-16); Calcium 9.3 mg/dL (8.4-10.2); Carbon Dioxide 24 mmol/L (22-29); Chloride 105 mmol/L (96-108); Cholesterol 139 mg/dL (<200); Estimated Glomerular Filt Rate 57; Glucose Fasting 95 mg/dL (60-99); HDL Cholesterol 45 mg/dL (>40); LDL Cholesterol Calculated 76 mg/dL (<100); Potassium 4.2 mmol/L (3.3-5.1); Sodium 135 mmol/L (135-145); Total Protein 7.2 g/dL (6.5-8.0); Triglycerides 90 mg/dL (<150)
[2024-05-25 11:22] LABS: Prostate Specific Antigen Scr 0.61 ng/mL (<0.05-4.0)
[2024-05-25 11:25] LABS: TSH reflex Free T4 5.33 uIU/mL (0.32-4.0)
[2024-05-25 11:32] LABS: Creatinine Urine 99.07 mg/dL; Microalbumin Urine < 5.0 mg/L
[2024-05-25 12:03] LABS: Free T4 (Free Thyroxine) 0.97 ng/dL (0.71-1.85)
== END 2024-05-25 06:06 | disposition home or self-care (01) ==
LOC: HO.HMGCLDS 06:05
PROVIDERS: PCP Nurse Practitioner Family; Visit Provider Nurse Practitioner Family
DX: E11.9 Type 2 diabetes mellitus without complications (principal); E03.9 Hypothyroidism, unspecified; D64.9 Anemia, unspecified; G47.30 Sleep apnea, unspecified; Z12.5 Encounter for screening for malignant neoplasm of prostate
CPT/HCPCS: 36415; 80053; 80061; 81003; 82043; 82570; 83036; 84153; 84439; 84443; 85025; 96127; 99212

== ENCOUNTER 2024-05-25 11:20 | Outpatient (AMB) | payer OTHER, SELFPAY ==
[2024-05-25 11:32] VITALS: BP 138/80; PULSE 86; O2SAT 98; BMI 42.0
--- NOTE | 2024-05-25 11:32 | A.OFFPC_ITS ---
Vital Signs 05/25/24 11:32 Height 5 ft 6 in Weight 260 lb BMI 42.0 BP 138/80 Blood Pressure Location Rt brachial Position Sitting Pulse 86 Pulse Source Pulse Oximeter Pulse Oximetry (%) 98 Oxygen Delivery Method Room Air Intake Visit Reasons: 4 month f/u DM Intake Note: pt is here for DM follow up Ribbon Cutter Required: No Accompanied by: Self / Same As Patient Allergies No Known Allergies [No Known Allergies*] Allergy (Verified 05/25/24 11:33) Medication List - Last Reconciled 05/25/24 by IDANIA ZepedaP- dulaglutide 3 mg (0.5 mL) subcut QWEEK fenofibrate micronized 134 mg PO DAILY 90 days irbesartan 75 mg PO DAILY 90 days levothyroxine 50 mcg PO DAILY metformin 1,000 mg PO BID 90 days omega-3 acid ethyl esters 2 caps PO BID pioglitazone (Actos) 30 mg PO DAILY simvastatin 40 mg PO DAILY 90 days Tobacco use date assessed: 05/25/24 Dental Screening Dental Screen Date: 05/25/24 Did you have a dental visit in the last 12 months?: Yes Did you have a dental problem in the last 6 months where you did not have access to dental care?: No Was dental information given to patient?: Patient has dentist HPI 4 month f/u DM HPI Details Chief Complaint The patient presents for follow-up care regarding diabetes management and evaluation of laboratory results. History of Present Illness The patient is a 54-year-old male presenting with a follow-up appointment for diabetes management and review of laboratory results. The patient has a history of Type 2 Diabetes Mellitus, with current management involving Trulicity. During the most recent visit, it was noted that his Hemoglobin A1c was 6.5; however, this reading may be inaccurate due to ongoing anemia. The anemia remains under evaluation; laboratory tests have been ordered to gain further insights into its cause. The patient also has a history of hypothyroidism, for which he is currently on levothyroxine 50 mg, but lab results indicate persistently elevated Thyroid- Stimulating Hormone (TSH) levels. Concerns regarding sleep apnea have been raised in past consultations, and a referral for a diagnostic test is being re- initiated. Social History Health Maintenance - Educated the patient on the importance of performing a FIT (Fecal Immunochemical Test) as previously recommended. - Discussed the necessity for a sleep ap zion test. - Reviewed PSA levels, which remain stab le. Review of Systems - Urinary System: Denies urinary symptom s. Physical Exam General: Cooperative, healthy appearing, comfortable, no acute distress and well developed Orientation: Patient oriented x3 Limitations: No limitations Head: Normal to inspection Ears: Hearing grossly normal bilaterally Nose: Normal external nose present Face and sinus: Normal facial exam Eyes: Appearance normal, both eyes and all related structures Neck: Normal visual inspection and Yes full ROM Respiratory: Normal respiratory effort and able to speak in complete sentences. Clear to auscultation bilaterally Cardiovascular: Regular rate and rhythm. Normal S1 and S2 GI: Normal to inspection. Soft to palpation and nontender Skin: No rashes or lesions noted Neuro: Patient oriented x3 Extremities: Normal to inspection Results - Labs: Hemoglobin A1c noted to be 6.5; however, possible inaccuracy due to anemia. - Labs: Elevated TSH levels indicating t hyroid dysfunction. - Labs: PSA levels stable. Plan 1. - Increase Trulicity dosage from 3 mg to 4.5 mg for enhanced glycemic control.: Discussion Notes I discussed with the patient the current management of his Type 2 Diabetes Mellitus, including adjusting the Trulicity dosage to improve glycemic control. The potential inaccuracies of the A1c reading due to anemia were evaluated, and further investigative tests were recommended. For his hypothyroidism, an increased dosage of levothyroxine was proposed, with an understanding of the risks and benefits involved. The patient was advised on the need for the FIT and the significance of undergoing a sleep apnea evaluation. Future follow-up was planned for approximately four months to assess the impact of these adjustments and diagnostic evaluations. Patient Instructions - Complete the FIT test as advised. - Undergo sleep apnea testing as soon as rescheduled. - Monitor and report any changes in symp toms, particularly regarding thyroid and urinary health. - Return for follow-up in approximately four months, or sooner if necessary, based on symptoms or test results. -repeat labs in 6 weeks [facility] Medical History HTN (hypertension) Hypothyroid Diabetes Elevated cholesterol Surgical History History of incision and drainage Hx of laparoscopic gastric banding Family History Father Heart attack Mother Cancer Social History Housing: House Patient Tobacco Use Status: Never used Tobacco e-Cigarette/Vaping Use: Never Used Second Hand Smoke Exposure: No service: No Current occupational status: employed Current occupation: [employer] Current occupational exposures/hazards: Yes Cognitive needs: No Hearing needs: No Vision needs: No Questionnaire PHQ-9 Over the last 2 weeks, how often have you been bothered by any of the following problems? 1. Little interest or pleasure in doing things: not at all 2. Feeling down, depressed, or hopeless: not at all 3. Trouble falling or staying asleep, or sleeping too much: not at all 4. Feeling tired or having little energy: not at all 5. Poor appetite or overeating: not at all 6. Feeling bad about yourself - or that you are a failure or have let yourself o r your family down: not at all 7. Trouble concentrating on things, such as reading the newspaper or watching television: not at all 8. Moving or speaking so slowly that other people could have noticed. Or the opposite - being so fidgety or restless that you have been moving around a lot more than usual: not at all 9. Thoughts that you would be better off or of hurting yourself in some way: not at all Total score: 0 Depression Screening Interpretation: Negative Depression Screening Done: Yes 60335 - PHQ-9 Billing: Yes Source: Developed by Drs. Jonah Angeles, Lorene Chavez, Dougie ceballos nd colleagues, with an educational lian from [employer]. Thrive Questionnaire Date Thrive assessed: 05/25/24 I am a: Patient What is your living situation today?: I choose not to answer this question Within the past 12 months, did the food you bought not last and you didn't have the money to get more?: I choose not to answer this question Within the past 12 months, did you worry whether your food would run out before you got money to buy more?: I choose not to answer this question Do you have trouble paying for medicines?: I choose not to answer this question Do you have trouble getting transportation to medical appointments?: I choose not to answer this question Do you have trouble paying your heating and electricity bill?: I choose not to answer this question Do you have trouble taking care of your child, family member or friend?: I choose not to answer this question Do you have trouble with day-to-day activities such as bathing, preparing meals, shopping, managing finances, etc.?: I choose not to answer this question Are you currently unemployed and looking for a job?: I choose not to answer this question Are you interested in more education?: I choose not to answer this question Please select the resources that you would like help with: None Currently or been in a relationship where the following occur: I choose not to answer THRIVE Score: 0 AUDIT C Alcohol Use Questionnaire (AUDIT-C) 1. How often do you have a drink containing alcohol?: Never 3. How often do you have six or more drinks on one occasion?: Never Total Score: 0 Score Reviewed/Action Taken: Yes ADALI-7 AMB Questionnaire ADALI-7 Date ADALI - 7 assessed: 05/25/24 Feeling nervous, anxious, or on edge: 0 = Not at all Not being able to stop or control worryin = Not at all Worrying too much about different things: 0 = Not at all Trouble relaxin = Not at all Being so restless that it is hard to sit still: 0 = Not at all Becoming easily annoyed or irritable: 0 = Not at all Feeling afraid as if something awful might happen: 0 = Not at all Total ADALI-7 score (0-4 normal; 5-9 mild; 10-14 moderate; 15-21 severe): 0 Source: Developed by Drs. Jonah Angeles, Lorene Chavez, Dougie Ortega and colleagues, with an educational lian from [employer]. ADALI-7 Assessment Billing ADALI-7 Assessment Tool: ADALI-7 Assessment 33648 Physical exam (Primary Care) Vital Signs: Last Vital Signs Pulse 86 05/25/24 11:32 BP 138/80 05/25/24 11:32 Pulse Ox 98 05/25/24 11:32 Oxygen Delivery Method Room Air 05/25/24 11:32 BMI result Body Mass Index 42.0 Tobacco/Smoking Status: Tobacco use Status Tobacco use date assessed 05/25/24 05/25/24 11:38 Patient Tobacco Use Status Never used Tobacco 05/25/24 11:38 e-Cigarette/Vaping Use Never Used 05/25/24 11:38 PHQ-9: PHQ-9 Score PHQ-9: Total score 0 05/25/24 11:38 Depression Screening Interpretation: Negative Thrive Assessment: Date of Thrive Assessment Date Thrive assessed 05/25/24 05/25/24 11:38 Currently or been in a relationship where the following occur: I choose not to answer Results AMB Hemoglobin A1c AMB Hemoglobin A1c 6.5 % Last Edit by Tre Soto CMA on 05/25/24 11: 55 Results Reviewed Results Reviewed: Laboratory Last Values Hgb A1c (Clinic) 6.5 % (4.0-6.0) H 05/25/24 11:41 Coding Level of Care Code Est Pt Level 3 (53216) Diagnoses Anemia D64.9 Hypothyroid E03.9 Diabetes E11.9 Sleep apnea G47.30 Additional Codes ADALI-7 Assessment Billing - ADALI-7 Assessment Tool: ADALI-7 Assessment 57640 ([id number]) PHQ-9 - 92422 - PHQ-9 Billing: Yes ([id number]) Assessment & Plan Assessment & Plan (1) Anemia: Code(s): D64.9 - Anemia, unspecified Category: Medical (2) Hypothyroid: Code(s): E03.9 - Hypothyroidism, unspecified Category: Medical (3) Diabetes: Code(s): E11.9 - Type 2 diabetes mellitus without complications Category: Medical (4) Sleep apnea: Code(s): G47.30 - Sleep apnea, unspecified Category: Medical Plan . Orders: Orders Hemoglobin Electrophoresis Today D64.9 - Anemia, unspecified IRON PROFILE Today D64.9 - Anemia, unspecified Complete Blood Count Auto Diff Today D64.9 - Anemia, unspecified AMB Hemoglobin A1c Today Z13.9 - Encounter for screening, unspecified Lactate Dehydrogenase Today D64.9 - Anemia, unspecified Ferritin Today D64.9 - Anemia, unspecified Vitamin B12 and Folate Today D64.9 - Anemia, unspecified Medications: Changed From dulaglutide 3 mg (0.5 mL) subcut QWEEK 2 mL 5RF To dulaglutide 4.5 mg (0.75 mL) subcut QWEEK 2 mL 5RF From levothyroxine 50 mcg PO DAILY 90 tabs 1RF E03.9 - Hypothyroidism, unspecified To levothyroxine 75 mcg PO DAILY 90 tabs 1RF E03.9 - Hypothyroidism, unspecified
--- OUTSIDE RECORDS SUMMARY | 2024-05-25 13:02 | XMS_ITS | Clinical Summary ---
Author Organization [facility] Address [address] [place] [address] Care Team Providers Care Cotton Grader Name Role Phone Unavailable Primary Care Provider Unavailabl e Source Comments PLEASE NOTE, if this patient is a minor, it may be UNLAWFUL to discuss sensitive information that is contained in these records (such as FAMILY PLANNING, MENTAL HEALTH or SUBSTANCE ABUSE) with the minor patient's parent or other person without the patient's specific authorization.[facility] Immunizations Name Administration Dates Next Due Moderna COVID-19 Vaccine, re d cap blue label, 12+ Primary Series 08/15/2020,07/18/2020 Social History Tobacco Use Types Packs/Day Years Used Date Smoking Tobacco: Never Assessed Social Connections Answer Date Recorded Social Connections and Isolation 0 07/18/2020 Financial Resource Strain Answer Date R ecorded Financial Resource Strain 0 2020 Stress Answer Date Recorded Stress 0 07/18/2020 Physical Activity Answer Date Recorded Physical Activity 0 07/18/2020 Food Insecurity Answer Date Recorded Food 0 07/18/2020 Transportation Needs Answer Date Record ed Transportation 0 07/18/2020 Housing Stability Answer Date Recorded Housing 0 07/18/2020 Safety and Environment Answer Date Rmoario rded Safety 0 07/18/2020 Utilities Answer Date Recorded Utilities 0 07/18/2020 Employment Answer Date Recorded Employment 0 07/18/2020 Sex and Gender Information Value Date Recorded Sex Assigned at Not on file Legal Sex Male 7:17 AM PDT Gender Identity Not on file Sexual Orientation Not on file Plan of Treatment Health Maintenance Due Date Last Done Comments Diabetes Screening 1972 Hepatitis C Screening 1972 Lipid Screening 1972 Tobacco Screening 1972 HIV Screening 01/25/1987 Annual Preventive Care Visit 01/25/1990 Hypertension Screening (#1) 01/25/1990 Imm-DTaP/Tdap/Td (1 - Tdap) 01/25/1991 Imm-Hepatitis B (1 of 3 - 19 + 3-dose series) 01/25/1991 CT Colonography 01/25/2017 Colonoscopy 01/25/2017 Colorectal Cancer Screening 01/25/2017 FIT/gFOBT 01/25/2017 Fecal DNA 01/25/2017 Flexible Sigmoidoscopy 01/25/2017 Imm-Zoster, Recombinant (1 of 2) 01/25/2022 [id number] ( season) 2024 021, 07/18/2020 Imm-Influenza (#1) 2024 03/15/2015 Alcohol and Drug Screen 05/04/2024 Depression Annual Screen 05/04/2024 Insurance H[employer] ([employer]) Member Subscriber Plan / Payer (Ef fective 2020-Present) Name:Julien Wilkins Relation to Subscriber:Self Name:Julien Wilkins Payer ID:[id number] Type:Indemnity Address: [address] [place] [address]
== END 2024-05-25 13:05 | disposition home or self-care (01) ==
PROVIDERS: PCP Nurse Practitioner Family; Visit Provider Nurse Practitioner Family
DX: D64.9 Anemia, unspecified (principal); E03.9 Hypothyroidism, unspecified; E11.9 Type 2 diabetes mellitus without complications; G47.30 Sleep apnea, unspecified; Z13.9 Encounter for screening, unspecified

== ENCOUNTER 2024-07-07 08:03 | Outpatient (REF) | payer OTHER, SELFPAY ==
--- OUTSIDE RECORDS SUMMARY | 2024-07-07 08:52 | XMS_ITS | Clinical Summary ---
Author Organization [facility] Address [address] [place] [address] Care Team Providers Care Supervisor Slashing Department Name Role Phone Unavailable Primary Care Provider [...] 01/25/2017 Imm-Zoster, Recombinant (1 of 2) 01/25/2022 [id number] ( season) 2024 021, 07/18/2020 Imm-Influenza (#1) 2024 03/15/2015 Alcohol and Drug Screen 05/04/2024 Depression Annual Screen 05/04/2024 Insurance [employer] ([employer]) Member Subscriber Plan / Payer (Ef fective 2020-Present) Name:Julien Wilkins Relation to Subscriber:Self Name:Julien Wilkins Payer ID:[id number] Type:Indemnity Address: [address] [place] [address]
[2024-07-07 12:53] LABS: Influenza A PCR NEGATIVE (Negative); Influenza B PCR NEGATIVE (Negative); Resp Syncy Virus RNA Qual PCR NEGATIVE (Negative); SARS COV2 PCR INHOUSE NEGATIVE (Negative)
== END 2024-07-07 08:04 | disposition home or self-care (01) ==
LOC: HO.LAB 08:03
PROVIDERS: PCP Nurse Practitioner Family; Visit Provider Physician Assistant
DX: J06.9 Acute upper respiratory infection, unspecified (principal); R09.89 Other specified symptoms and signs involving the circulatory and respiratory systems
CPT/HCPCS: 0241U; 99212

== ENCOUNTER 2024-07-07 08:03 | Outpatient (AMB) | payer OTHER, SELFPAY ==
--- OUTSIDE RECORDS SUMMARY | 2024-07-07 08:11 | XMS_ITS | Clinical Summary ---
Author Organization [facility] Address [address] [place] [address] Care Team Providers Care Electrical Helper Name Role Phone Unavailable Primary Care Provider [...] 0 07/18/2020 Safety and Environment Answer Date Romario rded Safety 0 07/18/2020 Utilities Answer Date [...] 01/25/2017 Imm-Zoster, Recombinant (1 of 2) 01/25/2022 [id number] ( season) 2024 021, 07/18/2020 Imm-Influenza (#1) 2024 03/15/2015 Alcohol and Drug Screen 05/04/2024 Depression Annual Screen 05/04/2024 Insurance HNE ([employer]) Member Subscriber Plan / Payer (Ef fective 2020-Present) Name:Julien Wilkins Relation to Subscriber:Self Name:Julien Wilkins Payer ID:[id number] Type:Indemnity Address: [address] [place] [address]
[2024-07-07 08:13] VITALS: BP 130/82; PULSE 81; TEMP 36.8; O2SAT 97; BMI 42.0
--- NOTE | 2024-07-07 08:13 | AM.OFFWIN_ITS ---
Intake Vital Signs 07/07/24 08:13 Height 5 ft 6 in Weight 260 lb BMI 42.0 BP 130/82 Blood Pressure Location Lt brachial Position Sitting Pulse 81 Pulse Source Pulse Oximeter Temp 98.2 F Temp Source Oral Pulse Oximetry (%) 97 Intake Visit Reasons: EP cough, cold Patient Tobacco Use Status: Never used Tobacco Allergies No Known Allergies [No Known Allergies*] Allergy (Verified 07/07/24 08:13) Do you need a note to return to daycare/school/sports/work: No HPI HPI Comments History of Present Illness Details History The patient is a 54-year-old male presenting with cough and headache. He reports a persistent cough for three days with accompanying headaches that follow coughing episodes. There is an absence of fever, ear pain, and sinus pain. While he reports intermittent fatigue, he denies shortness of breath. Although he notes some wheezing, he has no history of asthma, COPD, and does not smoke or vape. The patient has not taken any medications for his symptoms and denies nausea, vomiting, and diarrhea. There is concern about recovery for an anticipated trip. Physical Exam General: Cooperative, healthy appearing, comfortable and no acute distress Orientation/consciousness: Patient oriented x3 Limitations: No limitations Head: Normal to inspection Ears: Hearing grossly normal bilaterally, external ears normal and TM's normal b ilaterally Nose: Normal external nose present, Normal nares present and No nasal discharge present Face and sinus: Normal facial exam and Yes sinuses nontender Mouth: Normal oral and palatal mucosa present and moist mucous membranes Throat: Yes tonsils normal, Yes uvula midline. Posterior oropharynx erythema Eyes: Appearance normal, both eyes and all related structures Neck: Normal visual inspection Respiratory: Clear to auscultation bilaterally. Normal respiratory effort, able to speak in complete sentences, no respiratory distress, not tachypneic, no tripod positioning and no use of accessory muscles Cardiovascular: Regular rate and rhythm. Normal S1 and S2 Skin: No rashes or lesions noted Neuro: Patient oriented x3 Extremities: Normal to inspection and Yes no clubbing, cyanosis or edema [facility] Medical History HTN (hypertension) Hypothyroid Diabetes Elevated cholesterol Surgical History History of incision and drainage Hx of laparoscopic gastric banding Family History Father Heart attack Mother Cancer Social History (Reviewed 05/25/24 @ 12:30 by Vito Pruett [facility] Housing: House Patient Tobacco Use Status: Never used Tobacco e-Cigarette/Vaping Use: Never Used Second Hand Smoke Exposure: No service: No Current occupational status: employed Current occupation: [employer] Current occupational exposures/hazards: Yes Cognitive needs: No Hearing needs: No Vision needs: No Review of Systems Const All systems reviewed & are unremarkable except as noted in HPI and below Physical Exam Vital Signs: Last Vital Signs Temp 98.2 F 07/07/24 08:13 Pulse 81 07/07/24 08:13 BP 130/82 07/07/24 08:13 Pulse Ox 97 07/07/24 08:13 BMI result Body Mass Index 42.0 Assessment & Plan Assessment & Plan (1) URI, acute: Code(s): J06.9 - Acute upper respiratory infection, unspecified Plan: VSS, pt well appearing and PE unremarkable. I will proceed with testing for influenza, COVID-19, and RSV, as these are current viral concerns. Based on results, treatment may include Paxlovid for COVID-19 or Tamiflu for influenza, although side effects and efficacy concerns will be considered. Supportive treatment with hydration, rest, and a decongestant has been suggested to aid symptom relief. Test results will inform further management and therapeutic directions. Patient was informed and verbally consented to the use of an ambient scribe for clinic note documentation during this visit Orders: Orders SARS-CoV2/FLU/RSV Today R09.89 - Other specified symptoms and signs involving the circulatory and respiratory systems Coding Level of Care Code Est Pt Level 3 (22857) Diagnoses URI, acute J06.9
== END 2024-07-07 08:45 | disposition home or self-care (01) ==
PROVIDERS: PCP Nurse Practitioner Family; Visit Provider Physician Assistant
DX: J06.9 Acute upper respiratory infection, unspecified (principal)

== ENCOUNTER 2025-04-04 06:01 | Outpatient (REF) | payer OTHER, SELFPAY ==
[2025-04-04 10:05] LABS: MANUAL DIFF FLAG NO
[2025-04-04 10:10] LABS: Appearance Urine Clear; Glucose Urine UA Negative (Negative); PH 5.0 (5.0-9.0); Specific Gravity - Urine 1.015 (1.005-1.025)
[2025-04-04 10:25] LABS: Hematocrit 36.6 % (42.0-52.0); Hemoglobin 11.7 g/dl (14.0-18.0); Imm Gran Abs Auto 0.03 X10*3/uL (0.00-0.03); Imm Gran Pct Auto 0.5 % (0.0-0.4); Lymphocytes Absolute Auto 1.4 X10*3/uL (1.2-4.9); Mean Corpuscular HGB Conc 32.0 g/dl (31.0-36.0); Mean Corpuscular Hemoglobin 28.9 pg (27.0-33.0); Mean Corpuscular Volume 90.4 fL (80.0-98.0); NRBC Abs Auto 0.000 X10*3/uL (0.0-0.012); NRBC Pct Auto 0.0 /100WBC (0.0-0.2); Platelet Count 199 X10*3/uL (160-400); Red Blood Count 4.05 X10*6/uL (4.60-5.80); White Blood Count 6.4 X10*3/uL (4.8-10.8)
[2025-04-04 10:46] LABS: Alanine Aminotransferase 17 U/L (0-40); Albumin Level 4.3 g/dL (3.5-5.0); Alkaline Phosphatase 32 U/L (39-117); Anion Gap 9 (12-20); Aspartate Amino Transferase 23 U/L (5-37); Blood Urea Nitrogen 24 mg/dL (9-16); Calcium 8.7 mg/dL (8.4-10.2); Carbon Dioxide 25 mmol/L (22-29); Chloride 108 mmol/L (96-108); Cholesterol 130 mg/dL (<200); Estimated Glomerular Filt Rate 52; HDL Cholesterol 47 mg/dL (>40); Potassium 4.7 mmol/L (3.3-5.1); Sodium 137 mmol/L (135-145); Total Protein 6.9 g/dL (6.5-8.0); Triglycerides 87 mg/dL (<150)
== END 2025-04-04 06:02 | disposition home or self-care (01) ==
LOC: HO.HMGCLDS 06:01
PROVIDERS: PCP Nurse Practitioner Family; Visit Provider Nurse Practitioner Family
DX: E11.9 Type 2 diabetes mellitus without complications (principal); E55.9 Vitamin D deficiency, unspecified; Z12.5 Encounter for screening for malignant neoplasm of prostate
CPT/HCPCS: 36415; 80053; 80061; 81003; 82306; 82570; 83036; 84153; 84443; 85025; 99212

== ENCOUNTER 2025-04-04 12:49 | Outpatient (AMB) | payer OTHER, SELFPAY ==
--- NOTE | 2025-04-04 12:58 | A.OFFPC_ITS ---
Vital Signs 04/04/25 13:00 Height 5 ft 6 in Weight 272 lb BMI 43.9 BP 130/82 Blood Pressure Location Lt brachial Position Sitting Pulse 81 Pulse Source Pulse Oximeter Pulse Oximetry (%) 97 Intake Visit Reasons: F/U DM Allergies No Known Allergies (No Known Allergies*) Allergy (Verified 04/04/25 13:02) Medication List - Last Reconciled 04/04/25 by Vito Pruett [facility]- fenofibrate micronized 134 mg PO DAILY 90 days irbesartan 75 mg PO DAILY 90 days levothyroxine 75 mcg PO DAILY metformin 1,000 mg PO BID 90 days omega-3 acid ethyl esters 2 caps PO BID pioglitazone (Actos) 30 mg PO DAILY simvastatin 40 mg PO DAILY 90 days tirzepatide (Mounjaro) 2.5 mg (0.5 mL) subcut QWEEK Tobacco use date assessed: 05/25/24 Dental Screening Dental Screen Date: 05/25/24 HPI F/U DM HPI Details Chief Complaint The patient presents for a follow-up visit for diabetes management. History of Present Illness The patient is a 55 year old individual presenting for a follow-up for diabetes. The patient's current A1c is 6.5. The patient reports associated neuropathy. Other notable conditions include morbid obesity, slight anemia, and low vitamin D. The patient also has significant psoriasis affecting the scalp in the temporal and occipital regions, as well as onychomycosis of the feet, which is worse on the right. Social History Health Maintenance - The patient is aware of the need for a n annual dilated eye exam to screen for retinopathy. - Advised to stay well-hydrated. - Recommended to take 2000 IU of vitamin D daily for low levels. Review of Systems - Neurological: Reports neuropathy. - Cardiovascular: Denies chest pain. - Respiratory: Denies shortness of breat h. Physical Exam General: Cooperative, healthy appearing, comfortable, no acute distress and well developed, morbidly obese Orientation: Patient oriented x3 Limitations: No limitations Head: Normal to inspection Ears: Hearing grossly normal bilaterally Nose: Normal external nose present Face and sinus: Normal facial exam Eyes: Appearance normal, both eyes and all related structures Neck: Normal visual inspection and Yes full ROM Respiratory: Normal respiratory effort and able to speak in complete sentences. Clear to auscultation bilaterally Cardiovascular: Regular rate and rhythm. Normal S1 and S2 GI: Normal to inspection. Soft to palpation and nontender Skin: Psoriasis noted, especially on the scalp, temporal regions, and occipital regions Neuro: Patient oriented x3, minimal sensation with use of monofilament of feet, right worse than left Extremities: Normal to inspection Results - HbA1c: 6.5. - Anemia: The patient is slightly anemic . - Vitamin D: Low. Plan 1. Diabetes Mellitus The patient's current A1c is 6.5. Plan is to discontinue Trulicity and initiate Mounjaro to improve weight loss and A1c. The patient is aware of the need for an annual dilated eye exam to screen for retinopathy. 2. Morbid Obesity The patient is morbidly obese. The change in medication from Trulicity to Mounjaro is expected to provide better weight loss results. 3. Diabetic Neuropathy The patient has neuropathy with minimal sensation in the feet on monofilament exam. Management is encompassed within the overall diabetes care plan. 4. Psoriasis The patient has significant psoriasis on the scalp affecting the temporal and occipital regions. A cream will be prescribed, and a referral will be made to a oil rig roughneck for further evaluation and treatment. 5. Anemia The patient is slightly anemic. Labs will be repeated next week to re-evaluate this. 6. Vitamin D Deficiency Vitamin D level was low. The patient has been advised to take 2000 IU of vitamin D daily. 7. Dehydration And Kidney Function There is a concern for dehydration affecting kidney function. The importance of staying hydrated was stressed. Kidney function labs will be repeated next week. A referral to a rehabilitation manager was offered, but the patient currently declined. 8. Onychomycosis Onychomycosis was noted on the feet, worse on the right. No specific treatment was initiated at this visit. Discussion Notes I discussed changing the patient's diabetes medication from Trulicity to Mounjaro, as I believe it will yield better results for weight loss and A1c. I explained that the patient is slightly anemic and has low vitamin D, and we will repeat labs to monitor this. I expressed to the patient the importance of staying more hydrated, as I suspect dehydration is contributing to some of the lab abnormalities, and noted that while I wanted to refer to a rehabilitation manager, the patient declined at this time. Regarding the significant psoriasis on the scalp, I informed the patient I would prescribe a cream and also make a referral to a oil rig roughneck for further management. Finally, I confirmed the patient is aware of the need for an annual dilated eye exam for retinopathy screening. Patient Instructions - You will stop taking Trulicity and sta rt taking Mounjaro as prescribed. This new medication should help with weight loss and your blood sugar. - Take one vitamin D 2000 IU tablet by deanne anand every day because your levels are low. - Make sure to drink more water to stay well-hydrated. This is important for your kidney health. - We will send a prescription for a ruthie alicea to apply to your scalp for psoriasis. We are also setting up an appointment for you with a data capture specialist (oil rig roughneck). - Please return next week to have your b [employer] work redone. - Remember to schedule your yearly eye e xam where your pupils are dilated. [facility] Medical History HTN (hypertension) Hypothyroid Diabetes Elevated cholesterol Surgical History History of incision and drainage Hx of laparoscopic gastric banding Family History Father Heart attack Mother Cancer Social History Housing: House Patient Tobacco Use Status: Never used Tobacco e-Cigarette/Vaping Use: Never Used Second Hand Smoke Exposure: No service: No Current occupational status: employed Current occupation: [employer] Current occupational exposures/hazards: Yes Cognitive needs: No Hearing needs: No Vision needs: No Questionnaire PHQ-9 Over the last 2 weeks, how often have you been bothered by any of the following problems? 1. Little interest or pleasure in doing things: not at all 2. Feeling down, depressed, or hopeless: not at all 3. Trouble falling or staying asleep, or sleeping too much: not at all 4. Feeling tired or having little energy: not at all 5. Poor appetite or overeating: not at all 6. Feeling bad about yourself - or that you are a failure or have let yourself or your family down: not at all 7. Trouble concentrating on things, such as reading the newspaper or watching television: not at all 8. Moving or speaking so slowly that other people could have noticed. Or the opposite - being so fidgety or restless that you have been moving around a lot more than usual: not at all 9. Thoughts that you would be better off or of hurting yourself in some way: not at all Total score: 0 Source: Developed by Drs. Jonah Angeles, Lorene Chavez, Dougie Ortega and colleagues, with an educational lian from [employer]. Thrive Questionnaire Date Thrive assessed: 05/25/24 I am a: Patient What is your living situation today?: I choose not to answer this question Within the past 12 months, did the food you bought not last and you didn't have the money to get more?: I choose not to answer this question Within the past 12 months, did you worry whether your food would run out before you got money to buy more?: I choose not to answer this question Do you have trouble paying for medicines?: I choose not to answer this question Do you have trouble getting transportation to medical appointments?: I choose not to answer this question Do you have trouble paying your heating and electricity bill?: I choose not to answer this question Do you have trouble taking care of your child, family member or friend?: I choose not to answer this question Do you have trouble with day-to-day activities such as bathing, preparing meals, shopping, managing finances, etc.?: I choose not to answer this question Are you currently unemployed and looking for a job?: I choose not to answer this question Are you interested in more education?: I choose not to answer this question Please select the resources that you would like help with: None Currently or been in a relationship where the following occur: I choose not to answer THRIVE Score: 0 ADALI-7 AMB Questionnaire ADALI-7 Date ADALI - 7 assessed: 05/25/24 Source: Developed by Drs. Jonah Angeles, Lorene Chavez, Dougie Ortega and colleagues, with an educational lian from [employer]. Physical exam (Primary Care) Vital Signs: Last Vital Signs Pulse 81 04/04/25 13:00 BP 130/82 04/04/25 13:00 Pulse Ox 97 04/04/25 13:00 BMI result Body Mass Index 43.9 Tobacco/Smoking Status: Tobacco use Status Tobacco use date assessed 05/25/24 04/04/25 12:59 Patient Tobacco Use Status Never used Tobacco 04/04/25 12:59 e-Cigarette/Vaping Use Never Used 04/04/25 12:59 PHQ-9: PHQ-9 Score PHQ-9: Total score 0 04/04/25 13:00 Thrive Assessment: Date of Thrive Assessment Date Thrive assessed 05/25/24 04/04/25 12:59 Currently or been in a relationship where the following occur: I choose not to answer Coding Level of Care Code Est Pt Level 4 (93987) Diagnoses Diabetes E11.9 Elevated serum creatinine R79.89 Psoriasis L40.9 Assessment & Plan Assessment & Plan (1) Diabetes: Code(s): E11.9 - Type 2 diabetes mellitus without complications Category: Medical (2) Elevated serum creatinine: Code(s): R79.89 - Other specified abnormal findings of blood chemistry Category: Medical (3) Psoriasis: Code(s): L40.9 - Psoriasis, unspecified Category: Medical Plan . Orders: Orders IRON PROFILE Today E11.9 - Type 2 diabetes mellitus without complications, R79.89 - Other specified abnormal findings of blood chemistry Vitamin B12 and Folate Today E11.9 - Type 2 diabetes mellitus without comp lications, R79.89 - Other specified abnormal findings of blood chemistry Complete Blood Count Auto Diff Today E11.9 - Type 2 diabetes mellitus without complications, R79.89 - Other specified abnormal findings of blood chemistry Comprehensive Met. Panel Today E11.9 - Type 2 diabetes mellitus without complications, R79.89 - Other specified abnormal findings of blood chemistry Ferritin Today E11.9 - Type 2 diabetes mellitus without complications, R79.89 - Other specified abnormal findings of blood chemistry Lactate Dehydrogenase Today E11.9 - Type 2 diabetes mellitus without complications, R79.89 - Other specified abnormal findings of blood chemistry Referrals Dermatology Referral L40.9 - Psoriasis, unspecified Medications: New tirzepatide (Mounjaro) for 4 weeks 2.5 mg (0.5 mL) subcut QWEEK 2 mL 0RF betamethasone valerate 0.12% 1 appl topical BID 100 grams 0RF Discontinued Trulicity (dulaglutide) Discontinued Reason: Doctor's Order 4.5 mg (0.5 mL) subcut QWEEK 2 mL 5RF NS
[2025-04-04 13:00] VITALS: BP 130/82; PULSE 81; O2SAT 97; BMI 43.9
== END 2025-04-04 14:28 | disposition home or self-care (01) ==
LOC: HO.HMCC 12:49
PROVIDERS: PCP Nurse Practitioner Family; Visit Provider Nurse Practitioner Family
DX: E11.9 Type 2 diabetes mellitus without complications (principal); R79.89 Other specified abnormal findings of blood chemistry; L40.9 Psoriasis, unspecified